=== PATIENT | female | born 1995 | race Caucasian/White ===

== ENCOUNTER 2016-10-21 13:55 | Emergency (ER) | payer SELFPAY ==
[2016-10-21] MEDS ORDERED: DEXAMETHASONE 4 MG TAB PO ONE (16:45)
[2016-10-21] MEDS ORDERED: IPRATROPIUM/ALBUTEROL 3 ML DEYVIAL IH ONE (16:45)
--- NOTE | 2016-10-21 16:45 | EDPHY ---
H & P Time Seen by Provider: 10/21/16 16:16 HPI/ROS: CHIEF COMPLAINT: Dyspnea HISTORY OF PRESENT ILLNESS: The patient is a 21-year-old female presenting with throat pain and swelling. The patient developed a cough yesterday. Cough is nonproductive, but very violent causing patient to vomit. She took Tylenol and went to sleep. This morning she woke up with throat pain and swelling. The cough is better today. She reports dyspnea secondary to cough and throat pain. She states she is unable to take deep breaths. The patient is a cigarette smoker. She denies congestion or fever. The patient additionally notes urinary symptoms that have been ongoing since March. She was treated with antibiotics but states symptoms returned 1 week later. REVIEW OF SYSTEMS: A comprehensive 10 point review of systems is otherwise negative aside from elements mentioned in the history of present illness. Past Medical/Surgical History: Denies. Social History: Recently moved here from [place]. Smoking Status: Current every day smoker Physical Exam: General Appearance: Alert, pleasant Eyes: Pupils equal and round, no conjunctival pallor or injection ENT, Mouth: Mucous membranes moist. Throat: Pharyngeal erythema. Neck: Normal inspection Respiratory: Lungs are clear to auscultation, No wheezing Cardiovascular: Regular rate and rhythm Gastrointestinal: Abdomen is soft and non-tender Neurological: A&O, nonfocal, normal gait Skin: Warm and dry, no rash Extremities: Nontender, no pedal edema Psychiatric: Mood and affect normal Constitutional: Initial Vital Signs Temperature (C) 36.7 C 10/21/16 14:06 Heart Rate 90 10/21/16 14:06 Respiratory Rate 18 10/21/16 14:06 Blood Pressure 122/73 H 10/21/16 14:06 O2 Sat (%) 97 10/21/16 14:06 O2 Delivery Mode Room Air Allergies/Adverse Reactions: morphine Allergy (Verified 10/21/16 14:05) Home Medications: Medication Instructions Recorded Albuterol [Proventil Inhaler HFA 2 puffs IH QID PRN #1 mdi 10/21/16 (*)] Medical Decision Making ED Course/Re-evaluation: This patient presents with URI sx, including sore throat and cough. Patient received 6mg Decadron PO and DuoNeb. Cough lessened after duoneb. UA pending on discharge. 10/24/16: chart reviewed, UA positive, ED RN will call pt, rx for Keflex 500mg tid x 5 days - Data Points Medications Given: Discontinued Medications Albuterol/Ipratropium (Duoneb) 3 ml IH EDNOW ONE Stop: 10/21/16 16:46 Last Admin: 10/21/16 16:50 Dose: 3 ml Dexamethasone (Decadron) 6 mg PO EDNOW ONE Stop: 10/21/16 16:46 Last Admin: 10/21/16 16:50 Dose: 6 mg Departure - Departure Disposition: Home, Routine, Self-Care Clinical Impression: URI (upper respiratory infection) Qualifiers: URI type: unspecified viral URI Qualified Code(s): J06.9 - Acute upper respiratory infection, unspecified; B97.89 - Other viral agents as the cause of diseases classified elsewhere Condition: Good Instructions: Upper Respiratory Infection (ED) Additional Instructions: Adult Pain & Fever Control: We recommend Acetaminophen (Tylenol) and Ibuprofen (Motrin,Advil) for pain and fever control. When fever is high or pain severe, both drugs can be used at the same time, but at different intervals. Please note the time differences. Your dose is: Acetaminophen 650mg every 4 to 6 hours Ibuprofen 600mg every 6 to 8 hours with food. Note: do not take Acetaminophen with Hydrocodone (Vicodin, Lortab) or Oycodone (Percocet). These medications also contain Acetaminophen. No more than 3000mg of Acetaminophen should be taken in 24 hours (for an adult). Referrals: [facility],. [Clinic] - As per Instructions Prescriptions: Albuterol [Proventil Inhaler HFA (*)] 2 puffs IH QID PRN #1 mdi PRN Reason: Short Of Breath/Dyspnea Report Scribed for: Taryn Teresa Report Scribed by: Elvie Snow Date of Report: 10/21/16 Time of Report: 16:45 Physician Review and Approval Statement: 10/21/16 16:45 Portions of this note were transcribed by a medical billing manager. I personally performed the history, physical exam, and medical decision-making; and confirmed the accuracy of the information in the transcribed note.
[2016-10-21 17:37] VITALS: BP 112/77; PULSE 85; RESP 16; TEMP 97.7; O2SAT 98
[2016-10-21 17:37] LABS: COLOR YELLOW; LEUKOCYTE ESTERASE,URINE NEGATIVE (NEGATIVE); NITRITE,URINE POSITIVE (NEGATIVE)
[2016-10-21 18:01] LABS: BACTERIA 4+ /hpf (NONE SEEN); MUCUS 4+ /lpf (NONE-1+); RBC,URINE NONE SEEN /hpf (0-3)
== END 2016-10-21 17:37 | disposition home or self-care (01) ==
DX: J06.9 Acute upper respiratory infection, unspecified (principal); B97.89 Other viral agents as the cause of diseases classified elsewhere; F17.200 Nicotine dependence, unspecified, uncomplicated

== ENCOUNTER 2016-11-26 21:06 | Emergency (ER) | payer OTHER ==
[2016-11-26 21:18] VITALS: BP 118/72; PULSE 83; RESP 16; TEMP 99.5; O2SAT 97
[2016-11-26] MEDS ORDERED: IBUPROFEN 200 MG TAB PO ONE (21:30)
--- NOTE | 2016-11-26 21:38 | EDPHY ---
H & P Stated Complaint: felt wrist pop/shock while stretching depict Time Seen by Provider: 11/26/16 21:34 HPI/ROS: HPI: This is a 21-year-old female who presents with Chief Complaint: Right wrist injury Location: Right wrist Quality: Injury Duration: Prior to arrival Signs and Symptoms: + felt a pop sensation and then immediate pain, No bleeding , no radiation, no numbness, no weakness, no tingling, + decreased range of motion secondary to pain Timing: Acute Severity: Moderate Context: Patient was working at [employer] and stretching depict when she felt a pop on her right wrist lateral aspect and then immediate pain. She is right-hand dominant. She is able to move extremity but movement is decreased secondary to pain. She is here with her boss for further evaluation. Modifying Factors: Ice Applied Comment: ROS: Constitutional: No fever, no chills, no weight loss Eyes: No blurred vision Respiratory: No shortness of breath, no cough Cardiovascular: No chest pain Gastrointestinal: No nausea, no vomiting no diarrhea Genitourinary: No dysuria Extremities: No myalgias Neurologic: No weakness, no numbness Skin: No rashes Hematologic: No bruising, no bleeding MEDICAL/SURGICAL/SOCIAL HISTORY: MedHx: Generally healthy SurgHx: Denies surgical history. SocialHx: Recently moved here from [place], [place]. . Source: Patient Exam Limitations: No limitations - Personal History LMP (Females 10-55): 15-21 Days Ago Current Tetanus/Diphtheria Vaccine: Unsure - Medical/Surgical History Hx Asthma: No Hx Chronic Respiratory Disease: Yes Hx Diabetes: No Hx Cardiac Disease: No Hx Renal Disease: No Hx Cirrhosis: No Hx Alcoholism: No Hx HIV/AIDS: No Hx Splenectomy or Spleen Trauma: No Other PMH: PMHx: denies. PSHx: had quarter removed from throat - Social History Smoking Status: Current every day smoker - Physical Exam Exam: CONSTITUTIONAL: Petite young white female, wearing [employer] uniform, awake and alert, no obvious distress HEENT: Atraumatic and normocephalic, PERRL, EOMI. Tympanic membranes clear. Oropharynx clear, no exudate and moist pink mucosa. Airway patent. No lymphadenopathy. No meningismus. Cardiovascular: Normal S1/S2, regular rate, regular rhythm, without murmur rub or gallop. PULMONARY/CHEST: Symmetrical and nontender. Clear to auscultation bilaterally. Good air movement. No accessory muscle usage. ABDOMEN: Soft, nondistended, nontender, no rebound, no guarding, no peritoneal signs, no masses or organomegaly. No CVAT. EXTREMITIES: 2/2 pulses, right wrist tenderness to palpation over the ulnar styloid; flexion to 60, extension 40, radial deviation 10, ulnar deviation 10 . No scaphoid tenderness. No pain with Betsy test. no deformities, no clubbing, no cyanosis or edema. NEUROLOGICAL: no focal neuro deficits. GCS 15. Light touch sensation intact. SKIN: Warm and dry, no erythema. no rash. Good capillary refill. Constitutional: Initial Vital Signs Temperature (C) 37.5 C 11/26/16 21:14 Heart Rate 83 11/26/16 21:14 Respiratory Rate 16 11/26/16 21:14 Blood Pressure 118/72 11/26/16 21:14 O2 Sat (%) 97 11/26/16 21:14 O2 Delivery Mode Room Air Allergies/Adverse Reactions: morphine Allergy (Verified 10/21/16 14:05) Home Medications: Medication Instructions Recorded Albuterol [Proventil Inhaler HFA 2 puffs IH QID PRN #1 mdi 10/21/16 (*)] Medical Decision Making - Diagnostics Imaging Results: Imaging Impressions Wrist X-Ray 11/26/16 21:30 Impression: No evidence for acute osseous abnormality right wrist. Procedures: Procedure: Splint placement. A right Velcro wrist splint was applied by Emergency Room termite technician. After application of the splint I returned and re-examined the patient. The splint was adequately immobilizing the joint and distal to the splint the patient's circulation and sensation was intact. ED Course/Re-evaluation: No signs of neurovascular compromise/tenting of skin/compartment syndrome/ extremities and joints examined above and below area of concern and are neurovascularly intact. Patient has good range of motion and pain is controlled with ibuprofen. Right wrist x-ray my read via PACs shows no fracture/dislocation Advised rice, Velcro wrist splint applied, follow-up with Ortho if pain persists Differential Diagnosis: Differential includes wrist sprain, DeQuervain's, extensor carpi ulnaris tendinopathy. - Data Points Medications Given: Discontinued Medications Ibuprofen (Motrin) 800 mg PO EDNOW ONE Stop: 11/26/16 21:31 Last Admin: 11/26/16 21:40 Dose: 800 mg Departure - Departure Disposition: Home, Routine, Self-Care Clinical Impression: Sprain of right wrist Qualifiers: Encounter type: initial encounter Qualified Code(s): S63.501A - Unspecified sprain of right wrist, initial encounter Condition: Good Instructions: RICE Therapy (ED), Wrist Sprain (ED) Additional Instructions: Wear splint and limit immobilization of your right wrist until pain free. Take ibuprofen 600-800 mg every 6-8 hours with food as needed for pain and inflammation. Apply ice for 30 minutes at a time; 2-3 times per day for the next 1-2 days. If pain persists longer than 7 days follow-up with Orthopedics. The x-rays obtained in the emergency department today demonstrate no evidence of an obvious fracture. Sometimes fractures are not obvious on the initial set of x-rays performed in the ED. For this reason, you should have repeat x-rays performed in 7-10 days if you are having any pain exclude the possibility of an occult fracture. Referrals: Alfonzo Woods MD [Medical Doctor] - As per Instructions
== END 2016-11-26 22:24 | disposition home or self-care (01) ==
DX: S63.501A Unspecified sprain of right wrist, initial encounter (principal); F17.200 Nicotine dependence, unspecified, uncomplicated; X58.XXXA Exposure to other specified factors, initial encounter; Y92.69 Other specified industrial and construction area as the place of occurrence of the external cause; Y99.0 Civilian activity done for income or pay; Y93.89 Activity, other specified

== ENCOUNTER 2017-03-30 16:24 | Inpatient (IN) | payer SELFPAY ==
[2017-03-30] MEDS ORDERED: LORazepam 1 MG TAB PO ONE (16:45)
--- NOTE | 2017-03-30 16:45 | EDPHY ---
H & P Stated Complaint: SI - Personal History LMP (Females 10-55): Now Current Tetanus/Diphtheria Vaccine: Unsure Current Tetanus Diphtheria and Acellular Pertussis (TDAP): Unsure - Medical/Surgical History Hx Asthma: No Hx Chronic Respiratory Disease: Yes Hx Diabetes: No Hx Cardiac Disease: No Hx Renal Disease: No Hx Cirrhosis: No Hx Alcoholism: No Hx HIV/AIDS: No Hx Splenectomy or Spleen Trauma: No Other PMH: PMHx: depression, PNA, bronchitis. PSHx: had quarter removed from throat - Social History Smoking Status: Current every day smoker Time Seen by Provider: 03/30/17 16:33 HPI/ROS: CHIEF COMPLAINT: "I just want to end it " HISTORY OF PRESENT ILLNESS: 21-year-old female had a friend drive her to the ER. Patient complaining of increasing depression with suicidal ideation. She owns a self-described "large hunting knife "which she currently has or backpack states that she spent the evening in the bathroom holding the knife pondering whether she should lacerate herself or not. She denies attempt. Denies hallucination. Denies prior history of similar. Increasing depression suicidal ideations time largely due to professional and personal/relationship issues. REVIEW OF SYSTEMS: A ten point review of systems was performed and is negative with the exception of the items mentioned in the HPI PAST MEDICAL & SURGICAL HISTORY: No pertinent medical or surgical history SOCIAL HISTORY: Works at [employer] PHYSICAL EXAM (Prior to examination, patient consented to physical exam, hands were washed and my usual and customary physical exam procedures followed) 1) GENERAL: Well-developed, well-nourished, alert and oriented. She appears sad , crying inconsolably 2) HEAD: Normocephalic, atraumatic 3) HEENT: Pupils equal, round, reactive to light bilaterally. Sclera anicteric. 4) NECK: Full range of motion, no meningeal signs. 5) LUNGS: Clear auscultation bilaterally, no wheezes, no rhonchi, no retractions. 6) HEART: Regular rate and rhythm, no murmur, no heave, no gallop. 7) ABDOMEN: No guarding, no rebound, no focal tenderness, 8) MUSCULOSKELETAL: No signs of acute trauma No peripheral edema or discoloration. 9) BACK: No obvious trauma, no visual or palpable abnormality. 10) SKIN: No rash, no petechiae. 11) Psychiatric: Patient is oriented X 3, she appears sad, she is crying inconsolably DIFFERENTIAL DIAGNOSIS: In no particular include but limited to depression, suicidal ideation, homicidal ideation (Frederick Reinoso) Constitutional: Initial Vital Signs Temperature (C) 36.6 C 03/30/17 16:28 Heart Rate 117 H 03/30/17 16:28 Respiratory Rate 20 03/30/17 16:28 Blood Pressure 140/101 H 03/30/17 16:28 O2 Sat (%) 98 03/30/17 16:28 O2 Delivery Mode Room Air Allergies/Adverse Reactions: morphine Allergy (Verified 03/30/17 16:27) Medical Decision Making ED Course/Re-evaluation: 4:44 p.m.: Consultation with Dr. Taryn Teresa, secondary supervising physician , with whom I discussed case, patient has been placed on M1 hold for suicidal ideation, I think she presents an imminent danger to herself. This has been explained the patient and she is in agreement with this. Care the patient turned over to Dr. Taryn Teresa at 5:00 p.m. (Frederick Reinoso) 5pm: She is very sad and tearful. She feels that life is not worth living. She was placed on an M1 hold. 8pm: Accepted to 3N by Dr. Woodruff. EMTALA completed. (Taryn Teresa) - Data Points Laboratory Results: Laboratory Results 03/30/17 16:40 03/30/17 16:40 03/30/17 03/30/17 03/30/17 16:40 16:40 16:40 WBC RBC Hgb Hct MCV MCH MCHC RDW Plt Count MPV Neut % (Auto) Lymph % (Auto) Whitley % (Auto) Eos % (Auto) Baso % (Auto) Nucleat RBC Rel Count Absolute Neuts (auto) Absolute Lymphs (auto) Absolute Monos (auto) Absolute Eos (auto) Absolute Basos (auto) Absolute Nucleated RBC Immature Gran % Immature Gran # Sodium 145 mEq/L mEq/L (135-145) Potassium 4.3 mEq/L mEq/L (3.5-5.2) Chloride 107 mEq/L mEq/L (97-110) Carbon Dioxide 25 mEq/l mEq/l (22-31) Anion Gap 13 mEq/L mEq/L (8-16) BUN 15 mg/dL mg/dL (7-23) Creatinine 0.7 mg/dL mg/dL (0.6-1.0) Estimated GFR > 60 Glucose 88 mg/dL mg/dL (70-100) Calcium 9.5 mg/dL mg/dL (8.5-10.4) Beta HCG, Qual NEGATIVE Urine Opiates Screen NEGATIVE (NEGATIVE) Urine Barbiturates NEGATIVE (NEGATIVE) Ur Phencyclidine Scrn NEGATIVE (NEGATIVE) Ur Amphetamine Screen NEGATIVE (NEGATIVE) U Benzodiazepines Scrn NEGATIVE (NEGATIVE) Urine Cocaine Screen NEGATIVE (NEGATIVE) U Marijuana (THC) Screen NON-NEGATIVE H (NEGATIVE) Ethyl Alcohol < 10 mg/dL mg/dL (0-10) 03/30/17 16:40 WBC 11.20 10^3/uL H 10^3/uL (3.80-9.50) RBC 5.05 10^6/uL 10^6/uL (4.18-5.33) Hgb 16.3 g/dL g/dL (12.6-16.3) Hct 48.6 % H % (38.0-47.0) MCV 96.2 fL fL (81.5-99.8) MCH 32.3 pg pg (27.9-34.1) MCHC 33.5 g/dL g/dL (32.4-36.7) RDW 12.0 % % (11.5-15.2) Plt Count 210 10^3/uL 10^3/uL (150-400) MPV 9.9 fL fL (8.7-11.7) Neut % (Auto) 70.9 % % (39.3-74.2) Lymph % (Auto) 21.5 % % (15.0-45.0) Whitley % (Auto) 6.3 % % (4.5-13.0) Eos % (Auto) 0.6 % % (0.6-7.6) Baso % (Auto) 0.4 % % (0.3-1.7) Nucleat RBC Rel Count 0.0 % % (0.0-0.2) Absolute Neuts (auto) 7.94 10^3/uL H 10^3/uL (1.70-6.50) Absolute Lymphs (auto) 2.41 10^3/uL 10^3/uL (1.00-3.00) Absolute Monos (auto) 0.71 10^3/uL 10^3/uL (0.30-0.80) Absolute Eos (auto) 0.07 10^3/uL 10^3/uL (0.03-0.40) Absolute Basos (auto) 0.04 10^3/uL 10^3/uL (0.02-0.10) Absolute Nucleated RBC 0.00 10^3/uL 10^3/uL (0-0.01) Immature Gran % 0.3 % % (0.0-1.1) Immature Gran # 0.03 10^3/uL 10^3/uL (0.00-0.10) Sodium Potassium Chloride Carbon Dioxide Anion Gap BUN Creatinine Estimated GFR Glucose Calcium Beta HCG, Qual Urine Opiates Screen Urine Barbiturates Ur Phencyclidine Scrn Ur Amphetamine Screen U Benzodiazepines Scrn Urine Cocaine Screen U Marijuana (THC) Screen Ethyl Alcohol Medications Given: Discontinued Medications Lorazepam (Ativan) 1 mg PO EDNOW ONE Stop: 03/30/17 16:46 Last Admin: 03/30/17 17:00 Dose: 1 mg Departure - Departure Disposition: [facility] IP Clinical Impression: Suicidal ideation, Severe major depression Referrals: NONE *PRIMARY CARE P,. [Primary Care Provider] - As per Instructions
[2017-03-30] MEDS ORDERED: LORazepam 1 MG TAB ONE (16:46)
[2017-03-30 17:12] LABS: PLATELET COUNT 210 10^3/uL (150-400)
[2017-03-30] MEDS ORDERED: ACETAMINOPHEN 325 MG TAB PO PRN (19:30)
[2017-03-30] MEDS ORDERED: OLANZapine 5 MG TAB PO PRN (19:30)
[2017-03-30] MEDS ORDERED: MAGNESIUM HYDROXIDE 30 ML UDCUP PO PRN (19:30)
[2017-03-30] MEDS ORDERED: MAG HYDROX/AL HYDROX/SIMETH 30 ML UDCUP PO PRN (19:30)
[2017-03-30] MEDS ORDERED: LORazepam 0.5 MG TAB PO PRN (19:30)
[2017-03-30] MEDS ORDERED: NICOTINE POLACRILEX 2 MG GUM B PRN (19:30)
[2017-03-31 06:57] VITALS: O2SAT 95
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
[2017-04-01 06:50] VITALS: BP 112/61; PULSE 78; RESP 16; TEMP 97.9
--- NOTE | 2017-04-01 08:40 | BCON ---
[f rep ] BEHAVIORAL HEALTH CONSULTATION INTERNAL MEDICINE CONSULTATION DATE OF CONSULTATION: 03/31/2017 REFERRING PHYSICIAN: Apolinar Woodruff MD REASON FOR CONSULTATION: Medical clearance for inpatient behavioral health stay. HISTORY OF PRESENT ILLNESS: This patient came to the emergency department brought by a friend. She was complaining of increasing depression and suicidal ideation. She said that she had a large hunting knife with which she was considering lacerating herself. She was evaluated by the mental health team and admitted for further psychiatric care. She currently is without any acute complaints. PAST MEDICAL HISTORY: She has a history of bronchitis. PAST SURGICAL HISTORY: She denies any history of surgeries. MEDICATIONS: She was not taking any medications. SOCIAL HISTORY: She lives with roommates. 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 She is a tobacco smoker and uses marijuana. She had a recent break -up with a boyfriend. FAMILY HISTORY: She has a sister who had an eye tumor at age 1. There was substance abuse and mental health history in her parents. REVIEW OF SYSTEMS: She reports approximately a 20 pound weight loss over the past year or two. She has a reduced appetite. She says sometimes she is cold and sometimes she is hot and sweaty. Despite weight loss, she continues to menstruate though she says she is typically a week early or a week late. She sometimes has constipation for as long as 7 days and other times she has frequent defecation, which can last again for a week or two. She denies any abdominal pain. She says she has occasional vomiting, which is not self- induced. Often all she can tolerate in terms of food is a banana and a piece of bread. She denies cough, dyspnea, pain, dysuria or urinary frequency. Otherwise, a 10-point review of systems are negative. PHYSICAL EXAMINATION: VITAL SIGNS: Blood pressure is 113/79. Heart rate is 112 at 6 o'clock this morning. Respiratory rate is 14. Oxygen saturation is 95 % on room air. Temperature is 37 degrees centigrade. Her weight is 54.4 kg for a body mass index of 18.2. GENERAL: This is a thin woman, appears her chronologic age, cooperative and in no acute distress. HEENT: Extraocular movements are intact. Pupils are equal, round and reactive to light. Mucous membranes are moist. Dentition is in good condition. She has a non-crowded airway, Mallampati class I. NECK: Supple with no thyromegaly. HEART: There is irregular rate and rhythm with no murmurs, rubs or gallops. She is tachycardic. LUNGS: Clear to auscultation bilaterally. ABDOMEN: Soft, nontender, nondistended with normoactive bowel sounds. EXTREMITIES: There is no cyanosis, clubbing or edema. NEUROLOGIC: She is alert and oriented x3. Cranial nerves 2-12 are grossly intact. There is no focal weakness. Sensation is intact to light touch. Deep tendon reflexes are globally hypoactive. LABORATORY STUDIES: CBC revealed an elevated white blood cell count at 11.2. She had an elevated hematocrit as well at 48.6. Absolute neutrophils were elevated at 7.94, but there was no left shift. Serum chemistry revealed normal renal function and electrolytes. Beta hCG was negative for . Toxicology screen in the serum was negative for ethyl alcohol and the urine was non-negative for marijuana but negative for other substances of abuse. ASSESSMENT/RECOMMENDATIONS: 1. Mental health issues pending further evaluation and management per Psychiatry and the mental health team. 2. Weight loss over approximately 2 years with decreased appetite. Overall is not consistent with hyperthyroidism or hypothyroidism. However, we will check a TSH. If it is mildly elevated or mildly decreased, it may be due to acute stress rather than the cause of her mental health status. If it is very abnormal, then it may be etiologic of weight loss as well as mental health issues. 3. Tobacco dependence syndrome. Advised smoking cessation. 4. Possible irritable bowel syndrome. Her pattern of defecation, diarrhea and vomiting is consistent. Though the weight loss is concerning, she otherwise does not appear to be consistent with an inflammatory bowel disease especially with no abdominal pain or gluten sensitivity. Encourage normal p.o. intake. Advise monitoring for continued weight loss and gastrointestinal symptoms especially as her psychiatric state stabilizes. I see no medical contraindications to this patient's continued stay on the inpatient behavioral health unit or to any psychiatric medications or procedures. Thank you very much for including me in the care of this patient. Please do not hesitate to contact me or the hospitalist service should there be need for further medical evaluation. /[id number]/MODL MTDD
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
== END 2017-04-01 16:55 | disposition home or self-care (01) | DRG 885 ==
LOC: BBEH 21:35
PROVIDERS: ADMIT Psychiatry & Neurology Psychiatry; ATTEND Psychiatry & Neurology Psychiatry
DX: F31.81 Bipolar II disorder (principal); F12.90 Cannabis use, unspecified, uncomplicated; F17.200 Nicotine dependence, unspecified, uncomplicated; K58.9 Irritable bowel syndrome, unspecified
CPT/HCPCS: 80305; G0480

== ENCOUNTER 2017-04-25 09:55 | Emergency (ER) | payer OTHER ==
[2017-04-25 10:03] VITALS: TEMP 97.7
[2017-04-25] MEDS ORDERED: TDAP ADULT 0.5 ML INJ (BOOSTRIX) IM ONE (10:09)
[2017-04-25] MEDS ORDERED: IBUPROFEN 800 MG TAB PO ONE (10:09)
--- NOTE | 2017-04-25 10:26 | EDPHY ---
H & P Stated Complaint: slammed l thumb in car door this morning Source: Patient Exam Limitations: No limitations - Personal History LMP (Females 10-55): Over 28 Days Ago Current Tetanus/Diphtheria Vaccine: Unsure - Medical/Surgical History Hx Asthma: No Hx Chronic Respiratory Disease: No Hx Diabetes: No Hx Cardiac Disease: No Hx Renal Disease: No Hx Cirrhosis: No Hx Alcoholism: No Hx HIV/AIDS: No Hx Splenectomy or Spleen Trauma: No Other PMH: PMHx: depression, PNA, bronchitis. 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 She felt immediate, constant, [id number] nonradiating pain. She noted injury to her inferior nail bed. She reports pain worsened with ranges of motion. Unsure of last tetanus shot. Did not tried any fikb-eyn-[id number] medications or apply ice. LMP March 17; notes irregular menstruation cycle. Modifying Factors: None Comment: ROS: see HPI Constitutional: No fever, no chills, no weight loss Eyes: No blurred vision Respiratory: No shortness of breath, no cough Cardiovascular: No chest pain Gastrointestinal: No nausea, no vomiting no diarrhea Genitourinary: No dysuria Extremities: No myalgias Neurologic: No weakness, no numbness Skin: No rashes Hematologic: No bruising, no bleeding MEDICAL/SURGICAL/SOCIAL HISTORY: PMHx: depression, PNA, bronchitis PSHx: Endoscopy for quarter removed from throat Social history: Employed. Family history noncontributory CONSTITUTIONAL: Well-developed well-nourished young adult white female awake and alert, no obvious distress HEENT: Atraumatic and normocephalic, PERRL, EOMI. Tympanic membranes clear. Oropharynx clear, no exudate and moist pink mucosa. Airway patent. No lymphadenopathy. No meningismus. Cardiovascular: Normal S1/S2, regular rate, regular rhythm, without murmur rub or gallop. PULMONARY/CHEST: Symmetrical and nontender. Clear to auscultation bilaterally. Good air movement. No accessory muscle usage. ABDOMEN: Soft, nondistended, nontender, no rebound, no guarding, no peritoneal signs, no masses or organomegaly. No CVAT. EXTREMITIES: 2/2 radial pulses, strength 5/5, left thumb injury noted to inferior nail bed; no nail avulsion. DIP/PIP/MCP flexion, extension intact. Good light sensation. no deformities, no clubbing, no cyanosis or edema. NEUROLOGICAL: no focal neuro deficits. GCS 15. SKIN: Warm and dry, no erythema. no rash. Good capillary refill. (Charito Bustos) Constitutional: Initial Vital Signs Temperature (C) 36.5 C 04/25/17 09:59 Heart Rate 68 04/25/17 09:59 Respiratory Rate 17 04/25/17 09:59 Blood Pressure 108/80 04/25/17 09:59 O2 Sat (%) 97 04/25/17 09:59 O2 Delivery Mode Room Air Allergies/Adverse Reactions: morphine Allergy (Intermediate, Verified 04/25/17 09:58) Other-Enter Comments Home Medications: Medication Instructions Recorded NK [No Known Home Meds] 04/25/17 Medical Decision Making ED Course/Re-evaluation: Thumb clean with mild soap and water. Tetanus booster and ibuprofen given Left thumb x-ray shows no signs of fracture/dislocation Xeroform, tube gauze applied. No signs of neurovascular compromise/tenting of skin/compartment syndrome/ extremities and joints examined above and below area of concern and are neurovascularly intact/nail avulsion. This patient was seen under the supervision of my secondary supervising physician. I evaluated care for this patient independently. (Charito Bustos) The patient was evaluated and managed by the physician surgical assistant certified. I have reviewed this chart and I agree with the findings and plan of care as documented , as indicated by my signature. I am the secondary supervising physician. ( [place]) Differential Diagnosis: Differential diagnosis includes but is not limited to tuft fracture, phalanx fracture, nail injury, contusion, abrasion. (Charito Bustos) - Data Points Medications Given: Discontinued Medications Diphtheria/Tetanus/Acell Pertussis (Boostrix) 0.5 ml IM .ONCE ONE Stop: 04/25/17 10:10 Last Admin: 04/25/17 10:15 Dose: 0.5 ml Ibuprofen (Motrin) 800 mg PO EDNOW ONE Stop: 04/25/17 10:10 Last Admin: 04/25/17 10:14 Dose: 800 mg Departure - Departure Disposition: Home, Routine, Self-Care Clinical Impression: Injury of thumb, left, superficial, Finger contusion Condition: Good Instructions: R.I.C.E. Treatment (ED) Additional Instructions: Keep the dressing dry and in place for 48 hours. After 48 hours, you may remove the dressing; wash the site daily with mild soap and water; then pat dry; apply clean sterile dressing until fully healed. Your nail has been injured and will take weeks to grow out. Take Tylenol 650 mg every 4 hours and/or Ibuprofen 600 mg every 8 hours with food as needed for pain. Apply ice for 30 minutes at a time; 2-3 times per day for the next 1-2 days. The x-rays obtained in the emergency department today demonstrate no evidence of an obvious fracture. Sometimes fractures are not obvious on the initial set of x-rays performed in the ED. For this reason, you should have repeat x-rays performed in 7-10 days if you are having any pain exclude the possibility of an occult fracture. Return to the ER immediately if you experience new or worsening pain, discoloration, numbness, tingling, or any other symptoms that concern you. Referrals: [facility],. [Clinic] - As per Instructions Stand Alone Forms: Work Excuse
[2017-04-25 12:11] VITALS: BP 99/78; PULSE 74; RESP 16; O2SAT 96
== END 2017-04-25 12:10 | disposition home or self-care (01) ==
DX: S60.012A Contusion of left thumb without damage to nail, initial encounter (principal); F17.200 Nicotine dependence, unspecified, uncomplicated; Z23 Encounter for immunization; W23.0XXA Caught, crushed, jammed, or pinched between moving objects, initial encounter; Y92.89 Other specified places as the place of occurrence of the external cause; Y99.0 Civilian activity done for income or pay; Y93.89 Activity, other specified